=== PATIENT | female | born 1960 | race Caucasian/White ===

== ENCOUNTER 2020-08-06 11:42 | Outpatient (CLI) | payer BC, SELFPAY ==
--- NOTE | ~2020-08-06 | MM_ITS ---
EXAMINATION: MM screening will BI w gayathri HISTORY: Screening TECHNIQUE: Craniocaudal and mediolateral oblique 3-D tomosynthesis images were obtained and synthetic 2-D images were generated. CAD analysis was submitted and interpreted. COMPARISON: Comparison to multiple prior studies sequentially, with oldest reviewed study dated 08/21. BREAST PARENCHYMAL COMPOSITION: There are scattered areas of fibroglandular density. FINDINGS: There is no evidence of suspicious mass, calcification, or architectural distortion to sugg est malignancy in either breast. There has been no suspicious interval change. IMPRESSION: 1. No mammographic evidence of malignancy. 2. Recommend routine screening mammography in one year. BI-RADS Category 1: Negative Reviewed, dictated and finalized at location A.
== END 2020-08-06 11:43 | disposition home or self-care (01) ==
LOC: CHSIMG 11:46
PROVIDERS: PCP Nurse Practitioner Psychiatric/Mental Health; Visit Provider Nurse Practitioner Psychiatric/Mental Health
DX: Z12.31 Encounter for screening mammogram for malignant neoplasm of breast (principal)
CPT/HCPCS: 77063; 77067

== ENCOUNTER 2021-05-24 17:20 | Emergency (ER) | payer BC, SELFPAY ==
[2021-05-24 17:25] VITALS: BP 155/76; PULSE 108; RESP 16; TEMP 37.3; O2SAT 95
--- NOTE | 2021-05-24 17:25 | ED.URI ---
HPI - URI/Sore Throat General Chief Complaint: Upper Respiratory Infection Stated Complaint: asthma flare up Time Seen by Provider: 05/24/21 17:25 Source: patient and RN notes reviewed History of Present Illness HPI Narrative: Patient is a 60-year-old female who presents the urgent care with complaints of shortness of breath with tight wheezing. Patient states is been ongoing for the last couple days. States that whenever she gets a generic ProAir inhaler, it tends to exacerbate her asthma. Patient states that the pharmacy is aware of this issue and was not supposed to give her generic inhaler. Patient states that she has had a tight nonproductive cough. Denies of history of pneumonia. Chest pain. Denies of fever, chills, nausea or vomiting. No other acute complaints. Patient states she has been using her inhaler and nebulizers every 3-4 hours. No acute distress noted. Patient aware of the plan of care. Some parts of this dictation were generated by voice recognition software and may contain typographical and/or grammatical inaccuracies. Related Data Home Medications Medication Instructions Recorded Confirmed albuterol sulfate 2 puff INHALATION Q4-6H PRN 05/24/21 05/24/21 albuterol sulfate 2.5 mg CONTINUOUS NEBULIZATION Q4H 05/24/21 05/24/21 PRN cromolyn 20 mg INHALATION Q4H PRN 05/24/21 05/24/21 fluticasone propionate 2 spray INTRANASAL DAILY 05/24/21 05/24/21 loratadine [Claritin] 10 mg PO DAILY 05/24/21 05/24/21 montelukast 10 mg PO DAILY 05/24/21 05/24/21 Allergies Allergy/AdvReac Type Severity Reaction Status Date / Time No Known Allergies Allergy Unverified 05/24/21 17:36 Review of Systems Review of Systems: CONSTITUTIONAL: Denies fever, chills, or sweats. EYES: Denies visual changes, redness, or discharge. ENT: Denies rhinorrhea, congestion, sore throat, or otalgia. CARDIOVASCULAR: Denies chest pain, palpitations, or edema. RESPIRATORY: Reports of nonproductive cough with dyspnea and tight wheezing GASTROINTESTINAL: Denies abdominal pain, nausea, vomiting, or diarrhea. GENITOURINARY: Denies dysuria or hematuria. SKIN: Denies rash or itching. MUSCULOSKELETAL: Denies back pain, joint pain, or myalgia. NEUROLOGIC: Denies headache, numbness, or weakness. All other systems reviewed are negative, except as documented in HPI. PMFSH Comments At the time of my signature, I reviewed and agree with the nursing past medical, surgical, social, and family history. There is no relevant family history pertinent to the patient complaint. Exam Narrative: GENERAL: This is a well-nourished, well-developed patient, in no apparent distress. HEAD: normocephalic, atraumatic. EYES: PERRL. Sclera clear/white. Vision is grossly intact. EARS: External ears normal NOSE: External nose normal with no obvious nasal discharge, nares without redness, no rhinorrhea. THROAT: Mucous membranes moist NECK: Neck supple CARDIOVASCULAR: Regular rate and rhythm without murmurs, gallops, or rubs. RESPIRATORY: Diminished upper lung sounds with tight inspiratory and expiratory wheezing bibasilar SKIN: warm, intact with no suspicious lesions or rash, good texture and turgor. NEURO: awake, alert, and oriented to person, place and time. There were no obvious focal neurologic abnormalities. EXTREMITIES: No clubbing, cyanosis, or edema. Course Course Level of Care: Express Care Visit Vital Signs Vital signs: Vital Signs Temperature 99.1 F 05/24/21 17:25 Pulse Rate 108 H 05/24/21 17:25 Respiratory Rate 16 05/24/21 17:25 Blood Pressure 155/76 H 05/24/21 17:25 Pulse Oximetry 95 05/24/21 17:25 Temperature 99.1 F 05/24/21 17:25 Pulse Rate 108 H 05/24/21 17:25 Respiratory Rate 16 05/24/21 17:25 Blood Pressure 155/76 H 05/24/21 17:25 Pulse Oximetry 95 05/24/21 17:25 Reviewed-patient is informed that they may have pre-hypertension or hypertension based on a blood pressure reading in the department. I recommend the patient call t
[2021-05-24] MEDS: ALBUTEROL SULFATE NEB 2.5 MG/3 ML INH INHALATION (17:56)
[2021-05-24] MEDS: IPRATROPIUM BR 0.02% INH SOLN 0.5 MG/2.5 ML VIAL INHALATION (17:56)
[2021-05-24 18:10] VITALS: PULSE 100; O2SAT 95
== END 2021-05-24 18:25 | disposition home or self-care (01) ==
PROVIDERS: Emergency Provider Nurse Practitioner Family
DX: J45.21 Mild intermittent asthma with (acute) exacerbation (principal)
CPT/HCPCS: 94640; 99213; G0463

== ENCOUNTER 2021-08-19 11:45 | Outpatient (CLI) | payer BC, SELFPAY ==
--- NOTE | ~2021-08-19 | MM_ITS ---
EXAMINATION: MM screening [facility] BI w gayathri HISTORY: Screening mammogram TECHNIQUE: Craniocaudal and mediolateral oblique 3-D tomosynthesis images were obtained and synthetic 2-D images were generated. CAD analysis was submitted and interpreted. COMPARISON: 08/06/2020, 09/09/2018, 08/27/2018 BREAST PARENCHYMAL COMPOSITION: The breasts are heterogeneously dense, which may obscure small masses . FINDINGS: RIGHT BREAST: There is no suspicious mass, calcification, or architectural distortion to suggest asim gnancy. There has been no significant interval change. LEFT BREAST: An asymmetry is present in the middle third of inner breast 4 cm from the nipple on the craniocaudal view. IMPRESSION: 1. Left breast asymmetry. 2. Additional mammographic views and possible breast ultrasound are recommended. BI-RADS Category 0: Incomplete: Needs additional imaging evaluation. Reviewed, dictated and finalized at location A. IMPRESSION: 1. Left breast asymmetry. 2. Additional mammographic views and possible breast ultrasound are recommended . BI-RADS Category 0: Incomplete: Needs additional imaging evaluation.
== END 2021-08-19 11:46 | disposition home or self-care (01) ==
LOC: CHSIMG 11:47
PROVIDERS: PCP Family Medicine; Visit Provider Family Medicine
DX: Z12.31 Encounter for screening mammogram for malignant neoplasm of breast (principal)
CPT/HCPCS: 77063; 77067

== ENCOUNTER 2021-08-30 08:41 | Outpatient (CLI) | payer BC, SELFPAY ==
--- NOTE | ~2021-08-30 | MMUS_ITS ---
EXAMINATION: MM diagnostic will LT w gayathri, US breast LT complete HISTORY: Left breast asymmetry in middle third of inner breast 4 cm from nipple on craniocaudal scree abelardo view of 08/19/2021 TECHNIQUE: Additional 3-D tomosynthesis images of the left breast were performed and synthetic 2-D im ages were generated. CAD analysis was submitted and interpreted. High resolution complete left breast ultrasound including all 4 quadrants and subareolar area was performed. COMPARISON: 08/19/2021 bilateral screening mammogram FINDINGS: MAMMOGRAPHIC FINDINGS: No suspicious mass or architectural distortion, skin thickening or retraction. The area noted in the medial left breast on craniocaudal view appears to be superimposed fibroglandul ar stroma. ULTRASOUND: 3:00 2 cm from nipple: Parallel circumscribed hypoechoic 1.9 x 2.7 x 2.6 mm lesion without internal v ascularity or posterior shadowing, benign in appearance. No suspicious mass or shadowing is detected in the left breast. IMPRESSION: 1. Benign finding; no mammographic evidence of malignancy 2. Routine annual mammographic screening is recommended. BI-RADS Category 2: Benign finding(s). Reviewed, dictated and finalized at location A. IMPRESSION: 1. Benign finding; no mammographic evidence of malignancy 2. Routine annual mammographic screening is recommended. BI-RADS Category 2: Benign finding(s).
== END 2021-08-30 08:42 | disposition home or self-care (01) ==
LOC: CHSIMG 08:47
PROVIDERS: PCP Registered Nurse; Visit Provider Registered Nurse
DX: R92.8 Other abnormal and inconclusive findings on diagnostic imaging of breast (principal)
CPT/HCPCS: 76641; 77061; 77065; G0279

== ENCOUNTER 2022-09-08 14:31 | Outpatient (CLI) | payer BC, SELFPAY ==
--- NOTE | ~2022-09-08 | MM_ITS ---
EXAMINATION: MM screening will BI w gayathri HISTORY: Screening TECHNIQUE: Craniocaudal and mediolateral oblique 3-D tomosynthesis images were obtained and synthetic 2-D images were generated. CAD analysis was submitted and interpreted. COMPARISON: Comparison to multiple prior studies sequentially, with oldest reviewed study dated 04/2017. BREAST PARENCHYMAL COMPOSITION: Breast composed of scattered areas of fibroglandular density FINDINGS: There is no evidence of suspicious mass, calcification, or architectural distortion to sugg est malignancy in either breast. There has been no suspicious interval change. IMPRESSION: 1. No mammographic evidence of malignancy. 2. Recommend routine screening mammography in one year. BI-RADS Category 1: Negative Reviewed, dictated and finalized at location A.
== END 2022-09-08 14:32 | disposition home or self-care (01) ==
LOC: CHSIMG 14:32
PROVIDERS: PCP Registered Nurse; Visit Provider Registered Nurse
DX: Z12.31 Encounter for screening mammogram for malignant neoplasm of breast (principal)
CPT/HCPCS: 77063; 77067

== ENCOUNTER 2023-08-10 12:25 | Outpatient (CLI) | payer BC, SELFPAY ==
--- NOTE | ~2023-08-10 | MM_ITS ---
EXAMINATION: MM screening will BI w gayathri HISTORY: Screening mammogram TECHNIQUE: Craniocaudal and mediolateral oblique 3-D tomosynthesis images were obtained and synthetic 2-D images were generated. CAD analysis was submitted and interpreted. COMPARISON: 09/08/2022 bilateral screening mammogram 08/30/2021 diagnostic left mammogram and complete left breast ultrasound, reported benign 08/06/2020 bilateral screening mammogram BREAST PARENCHYMAL COMPOSITION: The breasts are heterogeneously dense, which may obscure small masses . FINDINGS: There is no evidence of suspicious mass, calcification, or architectural distortion to sugg est malignancy in either breast. There has been no suspicious interval change. IMPRESSION: 1. No mammographic evidence of malignancy. 2. Recommend routine screening mammography in one year. BI-RADS Category 1: Negative Reviewed, dictated and finalized at location B.
== END 2023-08-10 12:26 | disposition home or self-care (01) ==
LOC: CHSIMG 12:27
PROVIDERS: PCP Registered Nurse; Visit Provider Registered Nurse
DX: Z12.31 Encounter for screening mammogram for malignant neoplasm of breast (principal)
CPT/HCPCS: 77063; 77067

== ENCOUNTER 2024-08-08 11:46 | Outpatient (CLI) | payer BC, SELFPAY ==
--- NOTE | ~2024-08-08 | MM_ITS ---
EXAMINATION: MM screening will BI w gayathri HISTORY: Screening TECHNIQUE: Craniocaudal and mediolateral oblique 3-D tomosynthesis images were obtained and synthetic 2-D images were generated. CAD analysis was submitted and interpreted. COMPARISON: Comparison to multiple prior studies sequentially, with oldest reviewed study dated 06/2020. BREAST PARENCHYMAL COMPOSITION: Dense: The breasts are heterogeneously dense, which may obscure small masses FINDINGS: There is a new mass inferior aspect of the right breast on MLO view, posterior third. The l eft breast is stable without evidence for malignancy. IMPRESSION: 1. New right breast mass inferiorly on MLO view. 2. Recommend spot MLO view, exaggerated CC and mediolateral views of the right breast with right [address] ultrasound. BI-RADS Category 0: Incomplete: Needs additional imaging evaluation. Reviewed, dictated and finalized at location A. IMPRESSION: 1. New right breast mass inferiorly on MLO view. 2. Recommend spot MLO view, exaggerated CC and mediolateral views of the right breast with right breast ultrasound. BI-RADS Category 0: Incomplete: Needs additional imaging evaluation.
--- OUTSIDE RECORDS SUMMARY | 2024-08-08 12:29 | XMS_ITS | Clinical Summary ---
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1 cm (5' 5 ) 09/11/2021 2:00 PM CDT Body Mass Index 22.96 09/11/2021 2:00 PM CDT Plan of Treatment Health Maintenance Due Date Last Done Comments Cervical Cancer Screening Pa p Smear (Age 30 to 64) Every 3 Years 1961 Colorectal Cancer Screening Colonoscopy (10 Years) 1961 Annual Physical 1964 Hepatitis C 08/08/1979 Cervical Cancer Screening Pa p with HPV Testing (Age 30 to 64) Every 5 Years 08/08/1991 Cervical Cancer Screening wi th HPV 08/08/1991 Mammogram Screening 2001 Pneumococcal Vaccine: 50+ Years (1 of 1 - PCV) 08/08/2011 Zoster Vaccines (1 of 2) 08/08/2011 COVID-19 Vaccine ( - 2023-2 5 season) 2023 02/23/2021, 02/02/2021, 01/06/2021 DTaP, Tdap and Td Vaccines ( 2 - Td or Tdap) 08/13/2027 08/12/2017 RSV Immunization or 60+ Years (1 - 1-dose 75+ series) 2036 Meningococcal B Vaccine Aged Out No l onger eligible based on patient's age to complete this topic Meningococcal Vaccine Aged Out No tameka leonor eligible based on patient's age to complete this topic RSV Immunizations Under 20 Months Aged Out No longer eligible b ased on patient's age to complete this topic Insurance [facility] Care Teams Hydraulic Corrugating Machine Operator Relationship Specialty Start Date End Date Frankie Blount MD [address] [place] [phone] PCP - General FAMILY PRACTICE 08/22/21
== END 2024-08-08 11:47 | disposition home or self-care (01) ==
LOC: CHSIMG 11:48
PROVIDERS: PCP Registered Nurse; Visit Provider Registered Nurse
DX: Z12.31 Encounter for screening mammogram for malignant neoplasm of breast (principal); R92.8 Other abnormal and inconclusive findings on diagnostic imaging of breast
CPT/HCPCS: 77063; 77067

== ENCOUNTER 2024-08-30 08:48 | Outpatient (CLI) | payer BC, SELFPAY ==
--- NOTE | ~2024-08-30 | MMUS_ITS ---
EXAMINATION: MM diagnostic will RT w gayathri, US breast RT limited HISTORY: Follow-up right breast mass TECHNIQUE: Additional 3-D tomosynthesis images of the right breast were performed and synthetic 2-D i mages were generated. CAD analysis was submitted and interpreted. High resolution Limited right breas t ultrasound was performed. COMPARISON: Comparison to multiple prior studies sequentially, with oldest reviewed study dated 06/2020. BREAST PARENCHYMAL COMPOSITION: Not dense: There are scattered areas of fibroglandular density. FINDINGS: MAMMOGRAPHIC FINDINGS: There is a new mass in the lower central aspect of the right breast, posterior third. This mass is ci rcumscribed with central areas of low density, most likely benign intramammary lymph node. ULTRASOUND: Limited right breast ultrasound: Normal heterogeneous echotexture without focal solid or cystic mass. No sonographic correlate to mammographic finding. IMPRESSION: 1. Probable benign right breast mass inferior central right breast, posterior third. 2. Recommend 6 month follow-up diagnostic right mammogram BI-RADS category 3, probably benign findings. Reviewed, dictated and finalized at location A. IMPRESSION: 1. Probable benign right breast mass inferior central right breast, posterior t hird. 2. Recommend 6 month follow-up diagnostic right mammogram BI-RADS category 3, probably benign findings.
== END 2024-08-30 08:49 | disposition home or self-care (01) ==
LOC: CHSIMG 08:51
PROVIDERS: PCP Registered Nurse; Visit Provider Registered Nurse
DX: R92.8 Other abnormal and inconclusive findings on diagnostic imaging of breast (principal)
CPT/HCPCS: 76642; 77061; 77065; G0279

== ENCOUNTER 2024-11-12 17:00 | Emergency (ER) | payer BC, SELFPAY ==
--- OUTSIDE RECORDS SUMMARY | 2024-11-12 17:02 | XMS_ITS | Clinical Summary ---
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
--- NOTE | 2024-11-12 17:03 | ED_ITS ---
HPI - Extremity Injury (Upper) General Chief Complaint: Extremity Injury, Upper Stated Complaint: Left Arm Injury Time Seen by Provider: 11/12/24 17:03 Source: patient Mode of arrival: ambulatory Limitations: no limitations History of Present Illness HPI narrative: Cristin is a 64-year-old female patient presenting to the clinic today with complaints of a left arm injury. Reports that 3:00 p.m. today a leaf blower fell on top of her left arm. She has bruising and swelling to the left arm but denies any pain at this time. States she does bruise easily. She is not on any blood thinners. No tenderness to palpation over the arm. Related Data Home Medications ?Medication ?Instructions ?Recorded ?Confirmed ?Last Taken ?Type albuterol sulfate 2.5 mg/3 mL 2.5 mg continuous nebulization Q4H 05/24/21 05/24/21 Unknown History (0.083 %) solution for nebulization PRN Shortness Of Breath Or Wheezing albuterol sulfate 90 mcg/actuation 2 puff inhalation Q4-6H PRN 05/24/21 05/24/21 Unknown History aerosol inhaler Shortness Of Breath Or Wheezing cromolyn 20 mg/2 mL solution for 20 mg inhalation Q4H PRN Shortness 05/24/21 05/24/21 Unknown History nebulization Of Breath Or Wheezing fluticasone propionate 50 2 spray intranasal DAILY 05/24/21 05/24/21 Unknown History mcg/actuation nasal spray,suspension loratadine 10 mg tablet (Claritin) 10 mg PO DAILY 05/24/21 05/24/21 Unknown History montelukast 10 mg tablet 10 mg PO DAILY 05/24/21 05/24/21 Unknown History Allergies Allergy/AdvReac Type Severity Reaction Status Date / Time No Known Allergies Allergy Unverified 05/24/21 17:36 Review of Systems Review of Systems: Pertinent positives per HPI. Patient denies any fever, chills, rash, headache, visual changes, dizziness, cough, runny nose, sore throat, shortness of breath, chest pain, palpitations, nausea, vomiting, diarrhea, constipation, abdominal pain, or any urinary issues. PMFSH Comments At the time of my signature, I reviewed and agree with the nursing past medical, surgical, social, and family history. There is no relevant family history pertinent to the patient complaint. Exam Narrative: General: Well-developed, well nourished, in no apparent distress Head: Normocephalic, atraumatic. Cardio: Regular rate and rhythm, s1 and s2 normal, no murmur appreciated. Resp: Clear to auscultation bilaterally, no rhonchi, rales, wheezing or rubs. Musculoskeletal: No deformity, 4 x3 cm hematoma to the left mid dorsal forearm, non-tender to palpation over the forearm, grossly normal range of motion, muscle strength strong and equal, peripheral pulse strong, no edema, no cyanosis, normal gait and station Course Course Emergency Course: Portions of this record may have been created with voice recognition software. Level of Care: Express Care Visit Vital Signs Vital signs: Vital Signs Temperature 36.8 C 11/12/24 17:10 Pulse Rate 91 11/12/24 17:10 Respiratory Rate 20 11/12/24 17:10 Blood Pressure 122/76 11/12/24 17:10 Pulse Oximetry 96 11/12/24 17:10 Oxygen Delivery Room Air 11/12/24 17:10 Temperature 36.8 C 11/12/24 17:10 Pulse Rate 91 11/12/24 17:10 Respiratory Rate 20 11/12/24 17:10 Blood Pressure 122/76 11/12/24 17:10 Pulse Oximetry 96 11/12/24 17:10 Oxygen Delivery Room Air 11/12/24 17:10 Vital signs reviewed MDM - Extremity Injury (Upper) MDM Narrative Medical decision making narrative: At the time of visit patient is resting comfortably on the exam table. Patient appears to be nontoxic. Complaints of a left arm injury. Reports that 3:00 p.m. today a leaf blower fell on top of her left arm. She has bruising and swelling to the left arm but denies any pain at this time. States she does bruise easily. She is not on any blood thinners. No tenderness to palpation over the arm. When asked patient 1 and an x-ray she does not feels though she needs an x-ray at this time as she is not having any pain in the left arm. States her when the injury occurred however is not hurting now. Has bruising/hematoma to the left dorsal forearm measuring 4 cm x 3 cm. Ricky wrap and ice pack given. Plan: I suspect patient has a hematoma. No need for x-ray at this time as she is not having any pain. Explained to the patient that if she decided that she wanted to have an x-ray her time she can follow up with her PCP or return here. Supportive measures were discussed with the patient and they voiced understanding discharge instructions and agrees to treatment plan. Return precautions reviewed Differential Diagnosis Differential diagnosis: Likely other (Hematoma, forearm fracture, soft tissue injury, ecchymosis) Discharge Plan Discharge Clinical Impression: Hematoma Patient Disposition: Home Condition: Stable Instructions: Antibiotic Form, Hematoma (ED) Additional Instructions: No x-ray needed at this time. Apply ice pack to the affected area 20 minutes at a time-20 minutes on/20 minut es off for the next 24 hours Rest, ice, elevate, and wear ricky wrap as directed Tylenol as needed for pain as discussed. Watch for signs and symptoms of infection-fever not controlled by Tylenol or Motrin, redness, swelling, increase in pain, purulent discharge, or streaking. The hematoma will take some time to reabsorbed. Follow up with your PCP in 7-10 days or sooner if it worsens Patient Language: Syriac Prescriptions: No Action montelukast 10 mg tablet 10 mg PO DAILY albuterol sulfate 90 mcg/actuation HFA aerosol inhaler 2 puff INHALATION Q4-6H PRN (Reason: Shortness Of Breath Or Wheezing) cromolyn 20 mg/2 mL solution for nebulization 20 mg INHALATION Q4H PRN (Reason: Shortness Of Breath Or Wheezing) albuterol sulfate 2.5 mg /3 mL (0.083 %) solution for nebulization 2.5 mg continuous nebulization Q4H PRN (Reason: Shortness Of Breath Or Wheezing) fluticasone propionate 50 mcg/actuation spray,suspension 2 spray INTRANASAL DAILY loratadine [Claritin] 10 mg Tablet 10 mg PO DAILY albuterol sulfate [ProAir HFA] 90 mcg/actuation HFA aerosol inhaler 2 puff inhalation QID PRN (Reason: shortness of breath or wheezing) Qty: 8.5 0RF ipratropium bromide 0.02 % solution 2.5 ml inhalation Q6H PRN (Reason: shortness of breath or wheezing) Qty: 75 0RF Follow-up/Referrals: UNKNOWN,DOCTOR [Primary Care Provider] - Time of Disposition: 17:[address] [facility] Nursing Documentation ED NIHSS nursing documentation: reviewed/agree
[2024-11-12 17:10] VITALS: BP 122/76; PULSE 91; RESP 20; TEMP 36.8; O2SAT 96
== END 2024-11-12 17:19 | disposition home or self-care (01) ==
PROVIDERS: Emergency Provider Nurse Practitioner Family
DX: S50.12XA Contusion of left forearm, initial encounter (principal); W20.8XXA Other cause of strike by thrown, projected or falling object, initial encounter; J45.909 Unspecified asthma, uncomplicated
CPT/HCPCS: 99212; G0463